=== PATIENT | male | born 1985 | race Two or more races ===

== ENCOUNTER 2019-08-22 10:14 | Emergency (ER) | payer SELFPAY ==
[~2019-08-22] VITALS: Ht 175.3 cm; Wt 93.0 kg
[2019-08-22 10:45] VITALS: BP 137/86
[2019-08-22] MEDS ORDERED: METH4TAB2 PO (11:12)
[2019-08-22] MEDS ORDERED: DIPH25CA58 PO (11:12)
--- NOTE | 2019-08-22 11:13 | PHYS DOC ---
Past Medical History Past Medical History: No Pertinent History (RICARDO CAIN APRN) Past Surgical History: No Surgical History (RICARDO CAIN APRN) Alcohol Use: Occasionally Drug Use: None (RICARDO CAIN APRN) Attending Signature I have participated in the care of this patient and I have reviewed and agree with all pertinent clinical information above including history, exam, and recommendations. (PARRIS SANTOYO MD) Adult General Chief Complaint Chief Complaint: ITCHING HPI HPI Patient is a 34 year old male who presents with rash on arms that has spread to chest since last night. 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 (RICARDO CAIN APRN) Review of Systems Review of Systems Integument: rash or skin lesions [] All other systems were reviewed and found to be within normal limits, except as documented in this note. (RICARDO CAIN APRN) Allergies Allergies Allergies Coded Allergies Type Severity Reaction Last Updated Verified No Known Drug Allergies 08/22/19 No (PARRIS SANTOYO MD) Physical Exam Physical Exam Constitutional: Well developed, well nourished, no acute distress, non-toxic appearance. [] HENT: Normocephalic, atraumatic, bilateral external ears normal, oropharynx moist, no oral exudates, nose normal. [] Neck: Normal range of motion, no tenderness, supple, no stridor. [] Cardiovascular:Heart rate regular rhythm, no murmur [] Lungs & Thorax: Bilateral breath sounds clear to auscultation [] Skin: Warm, dry, no erythema, Bilateral arms, hand and upper chest rash. [] Back: No tenderness, no CVA tenderness. [] Extremities: No tenderness, no cyanosis, no clubbing, ROM intact, no edema. [] Neurologic: Alert and oriented X 3, normal motor function, normal sensory function, no focal deficits noted. [] Psychologic: Affect normal, judgement normal, mood normal. [] (RICARDO CAIN APRN) Current Patient Data Vital Signs Vital Signs Date Time Temp Pulse Resp B/P (MAP) Pulse Ox O2 Delivery O2 Flow Rate FiO2 08/22/19 10:45 98.1 86 18 137/86 (103) 98 Room Air 98.1 (PARRIS SANTOYO MD) EKG EKG [] (RICARDO CAIN APRN) Radiology/Procedures Radiology/Procedures [] (RICARDO CAIN APRN) Course & Med Decision Making Course & Med Decision Making No rash to face. No facial swelling or soa. Lungs are clear to auscultation. Olivia english has a patchy red nondraining rash to bilateral arms, hand, and on upper chest. No signs of infection. No blisters. Patient denies pain. (RICARDO CAIN APRN) Dragon Disclaimer Dragon Disclaimer This electronic medical record was generated, in whole or in part, using a voice recognition dictation system. (RICARDO CAIN APRN) Departure Departure Impression: Primary Impression: Itching Disposition: 01 HOME, SELF-CARE Condition: STABLE Referrals: NO PCP (PCP) Patient Instructions: Itching-Brief, Rash Additional Instructions: Follow up with primary care provider. Take medication as prescribed. Scripts Diphenhydramine Hcl (BENADRYL) 25 Mg Capsule 1 CAP PO BID for 7 Days, #14 CAP 0 Refills Prov: RICARDO CAIN APRN 08/22/19 Methylprednisolone (MEDROL) 4 Mg Tab.ds.pk 1 PKG PO UD, #1 PKG Prov: RICARDO CAIN APRN 08/22/19 RICARDO CAIN APRN Aug 22, 2019 11:12 PARRIS SANTOYO MD Aug 23, 2019 06:00
== END 2019-08-22 11:21 | disposition home or self-care (01) ==
LOC: ER 10:14
DX: L29.8 Other pruritus (principal); R21 Rash and other nonspecific skin eruption
CPT/HCPCS: 99283